=== PATIENT | female | born 1990 | race Caucasian/White ===

== ENCOUNTER 2021-03-24 21:57 | Observation (INO) | payer OTHER ==
[~2021-03-24] VITALS: Ht 154.9 cm; Wt 52.2 kg
[2021-03-24 23:49] LABS: HEMOGLOBIN 12.7 gm/dl (12.3-15.3); RED BLOOD COUNT 4.31 M/UL (4.00-5.10); WHITE BLOOD COUNT 7.3 K/UL (4.5-11.0)
[2021-03-25 00:05] LABS: BUN/CREATININE RATIO 8 (0-10)
[2021-03-25 05:03] LABS: RED BLOOD COUNT 4.07 M/UL (4.00-5.10); WHITE BLOOD COUNT 6.8 K/UL (4.5-11.0)
[2021-03-25] MEDS ORDERED: HYDROCODON-ACE1 EAC4 PO (14:19)
[2021-03-25] MEDS ORDERED: IBUPROFEN800 MG PO (14:19)
[2021-03-25] MEDS ORDERED: DOCUSATE SODIU100 MG PO (14:19)
== END 2021-03-25 19:18 | disposition home or self-care (01) ==
LOC: ER1 21:57 → CDU 03-25 04:08 → OB 03-25 04:08
PROVIDERS: Physician Assistant; ADMIT Obstetrics & Gynecology
DX: O00.101 Right tubal pregnancy without intrauterine pregnancy (principal); K66.1 Hemoperitoneum; N80.9 Endometriosis, unspecified; F32.9 Major depressive disorder, single episode, unspecified; F41.9 Anxiety disorder, unspecified; M54.5 Low back pain; G89.29 Other chronic pain; F17.210 Nicotine dependence, cigarettes, uncomplicated; Z88.1 Allergy status to other antibiotic agents; Z20.822 Contact with and (suspected) exposure to COVID-19
CPT/HCPCS: 76817; 80053; 81001; 84702; 85025; 86850; 86900; 86901; 87086; 96360; 96361; 96374; 96375; 99285; G0378; J1100; J1170; J1885; J2001; J2250; J2405; J2704; J2710; J2795; J3010; J7120; U0002

== ENCOUNTER 2021-10-09 17:46 | Emergency (ER) | payer OTHER ==
[~2021-10-09 17:46] MED LIST: DOCUSATE SODIU100 MG PO; HYDROCODON-ACE1 EAC4 PO; IBUPROFEN800 MG PO
[2021-10-09 21:34] LABS: HEMOGLOBIN 13.9 gm/dl (12.3-15.3); RED BLOOD COUNT 4.65 M/UL (4.00-5.10); WHITE BLOOD COUNT 5.3 K/UL (4.5-11.0)
[2021-10-09 22:47] LABS: BUN/CREATININE RATIO 10 (0-10)
== END 2021-10-10 00:55 | disposition home or self-care (01) ==
LOC: ER1 17:46
PROVIDERS: Nurse Practitioner
DX: O20.9 Hemorrhage in early pregnancy, unspecified (principal); Z3A.01 Less than 8 weeks gestation of pregnancy; Z87.891 Personal history of nicotine dependence; Z88.1 Allergy status to other antibiotic agents
CPT/HCPCS: 80053; 81001; 84702; 85025; 87086; 99284

== ENCOUNTER → 2021-10-11 | Outpatient (CLI) | payer OTHER | LOC: LAB 13:06 | DX: Z32.00 Encounter for pregnancy test, result unknown (principal) | CPT/HCPCS: 36415; 84702 ==

== ENCOUNTER → 2021-10-13 | Outpatient (CLI) | payer OTHER | LOC: LAB 13:53 | DX: O03.9 Complete or unspecified spontaneous abortion without complication (principal) | CPT/HCPCS: 84702 ==